=== PATIENT | female | born 1945 | race Caucasian/White ===

== ENCOUNTER → 2024-01-01 08:32 | Outpatient (REF) | payer OTHER, SELFPAY | LOC: HWRCS 08:32 | PROVIDERS: ATTENDING PHYSICIAN Family Medicine | DX: R55 Syncope and collapse (principal) | CPT/HCPCS: 93306 ==

== ENCOUNTER → 2024-02-09 14:44 | Outpatient (REF) | payer OTHER, SELFPAY | LOC: HWWDC 14:44 | PROVIDERS: ATTENDING PHYSICIAN Family Medicine | DX: Z12.31 Encounter for screening mammogram for malignant neoplasm of breast (principal) | CPT/HCPCS: 77063; 77067 ==

== ENCOUNTER → 2024-05-12 13:43 | Outpatient (REF) | payer OTHER, SELFPAY ==
[2024-05-12 16:24] LABS: % Basophils 0.6 % (0-2); % Eosinophils 1.8 % (0-6); % Immature Granulocytes 0.6 % (0-0.5); % Lymphocytes 19.1 % (20.5-51.1); % Monocytes 6.7 % (1.7-9.3); % Neutrophils 71.2 % (42.2-75.2); Absolute Basophils 0.1 10^3/uL (0-0.2); Absolute Eosinophils 0.2 10^3/uL (0-0.7); Absolute Immature Granulocytes 0.1 10^3/uL (0-0.05); Absolute Monocytes 0.7 10^3/uL (0.1-0.6); Absolute Neutrophils 7.6 10^3/uL (1.4-6.5); Hemoglobin 11.8 g/dL (12.0-16.0); Mean Corp Hgb Conc. 32.8 g/dL (33.0-37.0); Mean Corpuscular Hgb 27.9 pg (27.0-31.0); Mean Corpuscular Volume 85.1 fL (81.0-99.0); Mean Platelet Volume 11.9 fL (7.4-10.4); Nucleated Red Blood Cells % 0 %; Platelet Count 245 10^3/uL (130-400); Red Blood Cell Count 4.23 10^6/uL (4.20-5.40); Red Cell Dist. Width 14.2 % (11.5-14.5); White Blood Cell Count 10.6 10^3/uL (4.8-10.8)
[2024-05-12 16:36] LABS: IgA 195 mg/dl (70-400); IgG 879 mg/dl (700-1600); IgM 67 mg/dl (40-230)
[2024-05-14 19:47] LABS: IgG Subclass 1 459 mg/dL (240-1118); IgG Subclass 2 295 mg/dL (124-549); IgG Subclass 3 47 mg/dL (21-134); IgG Subclass 4 45 mg/dL (1-123)
== END ==
LOC: HWLAB 13:43
PROVIDERS: ATTENDING PHYSICIAN Internal Medicine Critical Care Medicine; FAMILY PHYSICIAN Family Medicine
DX: J45.30 Mild persistent asthma, uncomplicated (principal); J42 Unspecified chronic bronchitis; Z87.01 Personal history of pneumonia (recurrent)
CPT/HCPCS: 36415; 71046; 82784; 82787; 85025

== ENCOUNTER → 2024-07-26 08:56 | Outpatient (REF) | payer OTHER, SELFPAY | LOC: RAD 08:56 | PROVIDERS: ATTENDING PHYSICIAN Internal Medicine Gastroenterology; FAMILY PHYSICIAN Family Medicine | DX: R13.19 Other dysphagia (principal) | CPT/HCPCS: 74246 ==

== ENCOUNTER 2024-08-08 01:54 | Emergency (ER) | payer OTHER, SELFPAY ==
[2024-08-08] VITALS (15 sets, daily range): BP systolic 60–119; BP diastolic 48–67; BMI 25.0
--- NOTE | 2024-08-08 02:00 | ED.GENMED ---
History of Present Illness
<LISA Bojorquez - Last Filed: 08/08/24 06:05>
General
Chief Complaint: Chest Pain
Source: patient and significant other
Exam Limitations: none
Time Seen by Provider: 08/08/24 02:00
Nursing documentation reviewed up to this point in time: agreed with
History of Present Illness
History of Present Illness:
Pt is a 78 y/o F w/ PMH of migraines, HTN, HLD, type 2 DM and chronic cough who presents to the ED with chest pain x 2 hours after an episode of forceful coughing. When pt first arrived her BP was around 50/20, most likely due to the 2 doses of
nitroglycerin she was given before arrival. Since then, she has returned to wn. She states the pain feels like a heaviness on her chest and was initially an 8/10 but is now a 4/10 and is constant. She states the pain radiates up into her neck and
into her back. She states nothing like this has ever happened before. She denies fever, chills, GILBERT, nausea, vomiting, palpitations, abdominal pain, and loss of feeling/sensation in extremities x 4.
Past History
<LISA Bojorquez - Last Filed: 08/08/24 06:05>
Past History
ED Past Medical History: Asthma, NIDDM and Other (Arthritis, osteopenia, migraines)
ED Past Surgical History: Cholecystectomy, Gynecological (Tubal ligation) and Other (Colonoscopy)
Social History
Tobacco: Non-smoker
Alcohol: Other
Drug: None
Personal:
Living: with family
Employment: Retired
Family History
Family History: Other
Review of Systems
<LISA Bojorquez - Last Filed: 08/08/24 06:05>
Review of Systems
Allergies reviewed?: Yes
Constitutional: Reports no symptoms
EENT: Reports no symptoms
Respiratory: Reports cough
Cardiac: Reports chest pain
ABD/GI: Reports no symptoms
: Reports no symptoms
Musculoskeletal: Reports neck pain (radiating from chest) and back pain (radiating from chest)
Neurological: Reports no symptoms
Phy Exam
<Elizabeth Harrington LUIS ANTONIO - Last Filed: 08/08/24 06:05>
General Physical Exam
General Presentation: mild distress
General age: appears stated age
General Skin: warm and dry
General Habitus: normal and elderly
General Mental: alert
Cardiovascular Exam
Cardiovascular Exam: no gallop, no murmur and tachycardia
Pulmonary Exam
Pulmonary Exam: lungs clear and no respiratory distress
Course
<Elizabeth Harrington [facility] - Last Filed: 08/08/24 06:05>
Orders/Labs/Results
Orders:
Orders
08/08/24 01:59
Electrocardiogram (*1) Urgent
Reason for Study: Other
Other Reason for Exam: Respiratory Distress
Cardiac Monitoring- Treatment ONCE
EKG- Treatment ONCE
IV Insert/Care/Rem.- Treatment PRN
08/08/24 02:14
Complete Blood Count/With Diff Urgent
Comprehensive Metabolic Panel Urgent
NT-proBNP Urgent
Troponin I Urgent
08/08/24 02:16
Portable Chest Xray [CR Chest Portable - 1 View] Urgent
Comment:
Reason For Exam: chest pain
Reason Study Needs to be Portable: Unable to Transport
08/08/24 04:52
Ipratropium/Albuterol Sulfate [Duoneb] 3 ml INH R NOW ONE
08/08/24 05:01
Acetaminophen 1000MG/100Ml [Ofirmev] 1,000 mg in 100 ml IV ONCE
Acetaminophen IV Indication:: No [place] & No Enteral Access
08/08/24 05:24
COVID-19 Antigen Urgent
Source: Nasal Swab
Troponin I Urgent
Influenza A+B Rapid Molecular Urgent
JACINTO Source: Nasal Swab
Specimen Description:
Abnormal Lab Results
08/08/24
02:14
WBC 15.5 H 10^3/uL
(4.8-10.8)
RBC 3.98 L 10^6/uL
(4.20-5.40)
Hgb 11.0 L g/dL
(12.0-16.0)
Hct 34.3 L %
(37.0-47.0)
MCHC 32.1 L g/dL
(33.0-37.0)
Abs Immat Gran (auto) 0.1 H 10^3/uL
(0-0.05)
Absolute Neuts (auto) 12.5 H 10^3/uL
(1.4-6.5)
Absolute Monos (auto) 0.9 H 10^3/uL
(0.1-0.6)
Immature Gran % 0.6 H %
(0-0.5)
Neutrophils % 80.8 H %
(42.2-75.2)
Lymphocytes % 11.9 L %
(20.5-51.1)
BUN 18 H mg/dl
(7-17)
Glucose 156 H mg/dl
(70-99)
Alkaline Phosphatase 37 L U/L
(38-126)
Total Protein 6.2 L g/dl
(6.3-8.2)
08/08/24 02:14
08/08/24 02:14
Vital Signs
Initial and Last Documented VS:
Initial Vital Signs
Pulse Resp Pulse Ox
94 22 81
08/08/24 01:59 08/08/24 01:59 08/08/24 01:59
Last Documented Vital Signs
Temp Pulse Resp BP Pulse Ox
97.8 F 91 8 108/67 97
08/08/24 05:40 08/08/24 06:00 08/08/24 06:00 08/08/24 06:30 08/08/24 06:00
<Deepak Flynn, - Last Filed: 08/08/24 07:35>
Orders/Labs/Results
Orders:
Orders
08/08/24 01:59
Electrocardiogram (*1) Urgent
Reason for Study: Other
Other Reason for Exam: Respiratory Distress
Cardiac Monitoring- Treatment ONCE
EKG- Treatment ONCE
IV Insert/Care/Rem.- Treatment PRN
08/08/24 02:14
Complete Blood Count/With Diff Urgent
Comprehensive Metabolic Panel Urgent
NT-proBNP Urgent
Troponin I Urgent
08/08/24 02:16
Portable Chest Xray [CR Chest Portable - 1 View] Urgent
Comment:
Reason For Exam: chest pain
Reason Study Needs to be Portable: Unable to Transport
08/08/24 04:52
Ipratropium/Albuterol Sulfate [Duoneb] 3 ml INH R NOW ONE
08/08/24 05:01
Acetaminophen 1000MG/100Ml [Ofirmev] 1,000 mg in 100 ml IV ONCE
Acetaminophen IV Indication:: No [place] & No Enteral Access
08/08/24 05:24
COVID-19 Antigen Urgent
Source: Nasal Swab
Troponin I Urgent
Influenza A+B Rapid Molecular Urgent
JACINTO Source: Nasal Swab
Specimen Description:
Abnormal Lab Results
08/08/24
02:14
WBC 15.5 H 10^3/uL
(4.8-10.8)
RBC 3.98 L 10^6/uL
(4.20-5.40)
Hgb 11.0 L g/dL
(12.0-16.0)
Hct 34.3 L %
(37.0-47.0)
MCHC 32.1 L g/dL
(33.0-37.0)
Abs Immat Gran (auto) 0.1 H 10^3/uL
(0-0.05)
Absolute Neuts (auto) 12.5 H 10^3/uL
(1.4-6.5)
Absolute Monos (auto) 0.9 H 10^3/uL
(0.1-0.6)
Immature Gran % 0.6 H %
(0-0.5)
Neutrophils % 80.8 H %
(42.2-75.2)
Lymphocytes % 11.9 L %
(20.5-51.1)
BUN 18 H mg/dl
(7-17)
Glucose 156 H mg/dl
(70-99)
Alkaline Phosphatase 37 L U/L
(38-126)
Total Protein 6.2 L g/dl
(6.3-8.2)
08/08/24 02:14
08/08/24 02:14
Vital Signs
Initial and Last Documented VS:
Initial Vital Signs
Pulse Resp Pulse Ox
94 22 81
08/08/24 01:59 08/08/24 01:59 08/08/24 01:59
Last Documented Vital Signs
Temp Pulse Resp BP Pulse Ox
97.8 F 91 8 108/67 97
08/08/24 05:40 08/08/24 06:00 08/08/24 06:00 08/08/24 06:30 08/08/24 06:00
Georgialt;LISA Bojorquez - Last Filed: 08/08/24 06:05>
MDM/Problems Addressed
Differential Diagnosis Includes:
STEMI, NSTEMI, costochondritis, pericardial effusion
Chronic conditions affecting care: DM and HTN
<LISA Bojorquez - Last Filed: 08/08/24 06:05>
*EKG
Interpreted by ED Provider?: Yes
EKG Intrepretation Date: 08/08/24
EKG Intrepretation Time: 02:00
Interpretation: abnormal
Comparison EKG: no changes
Heart Rate: 101
Rate: tachycardiac
Rhythm: sinus
[place]: normal axis
Interval: normal interval
QRS Pattern: right bundle branch block
Ischemia: no ischemia
*Critical Care Note
Total Time (30-74mins, 75-104mins- exclusive of procedures): Not Applicable
<Deepak Flynn DO - Last Filed: 08/08/24 07:35>
*Radiology
Radiology exam reviewed: all reviewed NAD by ED Provider
*Pulse Oximetry
Patient hypoxic: no
<Deepak Flynn DO - Last Filed: 08/08/24 07:35>
Patient Management
Social determinants of health affecting care: Living situation and Strong social support
<LISA Bojorquez - Last Filed: 08/08/24 06:05>
Update Note
Update Note:
08/08/24 @ 0600am: Pt is currently doing nebulizer treatment and reports she is feeling okay.
<Deepak Flynn DO - Last Filed: 08/08/24 07:35>
Update Note
Update Note:
08/08/24 @ 0600am: Pt is currently doing nebulizer treatment and reports she is feeling okay.
08/08/2024 0732 AM: Patient ambulating around the department with no distress. She states that she has distinct left rib pain with deep breaths or movement of her torso. On x-ray there is no obvious rib fracture. Will provide incentive
spirometry. Patient to be discharged home.
ED Attending Note
<LISA Bojorquez - Last Filed: 08/08/24 06:05>
-
Portions of this chart may have been created with voice recognition software.� Occasional wrong word or��sound alike� substitutions may have occurred due to the inherent limitations of voice recognition software.
<Deepak Flynn DO - Last Filed: 08/08/24 07:35>
ED Attending Note
Patient seen and examined by attending physician: Yes
I performed the substantive portion of visit, reviewed & personally made and approve the management plan that is documented in note by myself or HALLE.: Yes
ED Attending Note:
This a pleasant 78-year-old female who presents to the emergency department with substernal chest pain. Patient does have a chronic cough. Tonight she coughed and developed back and chest pain. She states that the pain radiated to her jaw and
neck. She was given 2 nitroglycerin tablets. She states that after the nitroglycerin, she felt lightheaded. Her pressure went to 52/20 according to EMS. IV fluids were administered. Upon arrival, she expressed difficulty taking a deep breath.
Patient was seen in conjunction with the PA student. I have reviewed and agree with the history and treatment plan presented. On my independent physical exam, patient is awake, alert, and oriented x3, no acute distress after initial H&P was taken.
After fluids patient had no complaints. Heart is regular rate rhythm. Lungs are clear to auscultation bilaterally without wheezes rales or rhonchi. Skin is warm and dry. Denies chest pain or shortness of breath. Denies headache. Denies nausea
or vomiting. Reports no abdominal pain.
Discharge Plan
Departure
Patient Disposition: Home (Routine Discharge)
Date of Disposition: 08/08/24
Time of Disposition: 07:34
Patient with high blood pressure during this ER visit?: No
Condition: Good
Discharge Problem:
Acute chest wall pain, Rib injury
Instructions: How to Use an Incentive Spirometer, Bruised Rib (DC), Chest Pain PCP Follow Up
Prescriptions:
No Action
metformin [Glucophage] 500 mg Tablet
2,000 mg PO BID
fluticasone propion-salmeterol [Advair Diskus] 250-50 mcg/dose Blister With Device
1 inh INHALATION BID
simvastatin [Zocor] 10 mg Tablet
10 mg PO DAILY
glipizide [Glucotrol XL] 5 mg Tablet Extended Release 24hr
5 mg PO BID
sumatriptan succinate [Imitrex] 50 mg Tablet
50 mg PO ONCE PRN (Reason: migraine)
acetaminophen [Tylenol Ex Str Rapid Release] 500 mg Tablet
500 mg PO DAILY PRN (Reason: pain)
ibuprofen [Advil] 200 mg Tablet
200 mg PO DAILY PRN (Reason: pain)
montelukast 10 mg Tablet
10 mg PO DAILY
fexofenadine-pseudoephedrine [Do-D 12 Hour] 60-120 mg Tablet Extended Release 12 Hr
1 tab PO Q12H PRN (Reason: allergy)
lisinopril 2.5 mg Tablet
2.5 mg PO DAILY
Centrum Silver Tablet
1 tab PO DAILY
Januvia 50 mg Tablet
50 mg PO DAILY
Jardiance 10 mg Tablet
10 mg PO DAILY
albuterol-budesonide 90-80 mcg/actuation Hfa Aerosol Inhaler
2 inh INHALATION Q6H PRN (Reason: sob)
Rx Instructions:
as a single dose; may repeat up to 6 doses per day (12 inhalations)
Referrals:
Sancho Ortiz DO [Family Provider] -
Activity Restrictions/Additional Instructions:
It was a pleasure meeting you and taking part in your care. We hope for your continued healing and wellness.
Please read discharge instructions in their entirety. However, they are for general education and may not describe your exact diagnosis at discharge. Information on your ER visit and medical conditions were discussed with you along with appropriate
follow up information...
If indicated, please take your medications as instructed and indicated on discharge paperwork.
Please schedule a follow up appointment as directed. Call to schedule an appointment
Please return to the emergency department with ANY change in, persisting, or worsening of symptoms. If any of your symptoms do not improve, or persist, or become more severe within 6-12 hours, please return to the emergency department for further
care.
Please return to the emergency department if you develop a headache, neck pain/stiffness, fever greater than 100.4F, chest pain, shortness of breath, persistent nausea, vomiting, slurred speech, difficulty walking, numbness/tingling, weakness, signs
of infection or any other symptoms that are worrisome to you.
If you have any questions or concerns please do not hesitate to call the Hospital at or E-mail me directly at [email or web address]
Interventions
Interventions:
*Risk Screen - Suicide Last Done: 08/08/24 02:00
*General Assessment Last Done: 08/08/24 02:00
*Neglect/Abuse Screening Last Done: 08/08/24 02:00
ED- Fall Risk Assessment Last Done: 08/08/24 02:00
*ED COVID-19 Vaccine History Last Done: 08/08/24 02:00
ED- Cardiac Assessment Last Done: 08/08/24 02:00
Discharge Date and Time
Print Language: GABONESE
[2024-08-08 02:24] LABS: % Basophils 0.4 % (0-2); % Eosinophils 0.7 % (0-6); % Immature Granulocytes 0.6 % (0-0.5); % Lymphocytes 11.9 % (20.5-51.1); % Monocytes 5.6 % (1.7-9.3); % Neutrophils 80.8 % (42.2-75.2); Absolute Basophils 0.1 10^3/uL (0-0.2); Absolute Eosinophils 0.1 10^3/uL (0-0.7); Absolute Immature Granulocytes 0.1 10^3/uL (0-0.05); Absolute Lymphocytes 1.8 10^3/uL (1.2-3.4); Absolute Monocytes 0.9 10^3/uL (0.1-0.6); Absolute Neutrophils 12.5 10^3/uL (1.4-6.5); Hematocrit 34.3 % (37.0-47.0); Mean Corp Hgb Conc. 32.1 g/dL (33.0-37.0); Mean Corpuscular Hgb 27.6 pg (27.0-31.0); Mean Corpuscular Volume 86.2 fL (81.0-99.0); Mean Platelet Volume 9.7 fL (7.4-10.4); Nucleated Red Blood Cells % 0 %; Platelet Count 189 10^3/uL (130-400); Red Blood Cell Count 3.98 10^6/uL (4.20-5.40); Red Cell Dist. Width 13.9 % (11.5-14.5); White Blood Cell Count 15.5 10^3/uL (4.8-10.8)
[2024-08-08 02:35] LABS: ALT (SGPT) 21 U/L (0-35); AST (SGOT) 22 U/L (14-36); Albumin 3.8 g/dl (3.5-5.0); Alkaline Phosphatase 37 U/L (38-126); Blood Urea Nitrogen 18 mg/dl (7-17); Calcium 8.8 mg/dl (8.4-10.2); Carbon Dioxide 24 mmol/L (22-30); Chloride 102 mmol/L (98-107); Estimated Creatinine Clearance 43 ml/min; Glucose 156 mg/dl (70-99); Potassium 3.9 mmol/L (3.5-5.1); Sodium 137 mmol/L (135-145); Total Bilirubin 0.3 mg/dl (0.2-1.3); Total Protein 6.2 g/dl (6.3-8.2); eGFR > 60.00
[2024-08-08 02:45] LABS: NT-proBNP 33.4 pg/ml; Troponin I < 0.012 ng/ml
[2024-08-08] MEDS: OFIRMEV 100 IV (05:47)
[2024-08-08] MEDS: DUONEB 3 ML INH (05:48)
[2024-08-08 06:15] LABS: COVID-19 Antigen Negative (Negative)
[2024-08-08 06:19] LABS: Troponin I < 0.012 ng/ml
--- NOTE | 2024-08-08 07:35 | EDRN ---
per the providers request, this RN ambulated with the pt and the pt had no c/o SOB, no c/o chest pain, no c/o light headedness, the pt just has c/o pain when she takes a deep breath, the pts Sp02 remained 94% during the entire ambulation,
Rina currently at the pts bedside
== END 2024-08-08 08:02 | disposition home or self-care (01) ==
LOC: EMR 01:54
PROVIDERS: Nurse Practitioner Family; EMERGENCY PHYSICIAN Student in an Organized Health Care Education/Training Program; FAMILY PHYSICIAN Family Medicine
DX: S29.9XXA Unspecified injury of thorax, initial encounter (principal); X58.XXXA Exposure to other specified factors, initial encounter; E11.9 Type 2 diabetes mellitus without complications; E78.5 Hyperlipidemia, unspecified; I10 Essential (primary) hypertension; Z90.49 Acquired absence of other specified parts of digestive tract
CPT/HCPCS: 94640; 96374; 99285; 71045; 80053; 83880; 84484; 85025; 87502; 87811; 93005

== ENCOUNTER 2024-09-12 19:10 | Inpatient (IN) | payer OTHER, SELFPAY ==
[2024-09-12 14:17] VITALS: BP 118/66
[2024-09-12 14:50] LABS: % Basophils 0.3 % (0-2); % Eosinophils 0.1 % (0-6); % Immature Granulocytes 0.9 % (0-0.5); % Lymphocytes 8.8 % (20.5-51.1); % Monocytes 7.5 % (1.7-9.3); % Neutrophils 82.4 % (42.2-75.2); Absolute Immature Granulocytes 0.1 10^3/uL (0-0.05); Absolute Lymphocytes 0.7 10^3/uL (1.2-3.4); Absolute Monocytes 0.6 10^3/uL (0.1-0.6); Absolute Neutrophils 6.4 10^3/uL (1.4-6.5); Hematocrit 32.5 % (37.0-47.0); Hemoglobin 10.7 g/dL (12.0-16.0); Mean Corp Hgb Conc. 32.9 g/dL (33.0-37.0); Mean Corpuscular Hgb 27.2 pg (27.0-31.0); Mean Corpuscular Volume 82.5 fL (81.0-99.0); Mean Platelet Volume 9.8 fL (7.4-10.4); Nucleated Red Blood Cells % 0 %; Platelet Count 172 10^3/uL (130-400); Red Blood Cell Count 3.94 10^6/uL (4.20-5.40); Red Cell Dist. Width 14.3 % (11.5-14.5); White Blood Cell Count 7.7 10^3/uL (4.8-10.8)
[2024-09-12 14:57] LABS: ALT (SGPT) 31 U/L (0-35); AST (SGOT) 35 U/L (14-36); Alkaline Phosphatase 69 U/L (38-126); Blood Urea Nitrogen 11 mg/dl (7-17); Calcium 8.8 mg/dl (8.4-10.2); Carbon Dioxide 20 mmol/L (22-30); Chloride 93 mmol/L (98-107); Glucose 132 mg/dl (70-99); Potassium 4.5 mmol/L (3.5-5.1); Sodium 130 mmol/L (135-145); Total Bilirubin 0.5 mg/dl (0.2-1.3); Total Protein 6.7 g/dl (6.3-8.2); eGFR > 60.00
[2024-09-12 15:32] LABS: Troponin I < 0.012 ng/ml
[2024-09-12 16:03] VITALS: BP 125/64
[2024-09-12 18:16] VITALS: BP 115/61
--- NOTE | 2024-09-12 18:25 | ED.GENMED ---
History of Present Illness
General
Chief Complaint: Breathing Problem
Time Seen by Provider: 09/12/24 17:55
History of Present Illness
History of Present Illness:
78-year-old female presents to the emergency department for evaluation of intractable cough for the past 10 days. Has had persistent fevers during this time as well. Cough is productive of yellow-green mucus. Unable to take a full breath due to
frequent coughing. Denies any chest pain or leg swelling. No antipyretics taken today.
Past History
Past History
ED Past Medical History: Asthma, NIDDM and Other (Arthritis, osteopenia, migraines)
ED Past Surgical History: Cholecystectomy, Gynecological (Tubal ligation) and Other (Colonoscopy)
Social History
Tobacco: Non-smoker
Alcohol: Other
Drug: None
Personal:
Living: with family
Employment: Retired
Family History
Family History: Other
Review of Systems
Review of Systems
Allergies reviewed?: Yes
All Other Systems: ROS reviewed and negative except as documented in HPI and ROS
Phy Exam
Physical Exam
Physical Exam:
GEN: Well appearing, NAD, WDWN
HEENT: Oral mucosa moist, no scleral icterus
Cardiac: Mildly tachycardic
Lung: No respiratory distress, no tachypnea, crackles and rhonchi heard at the left base as well as the right middle field
MSK: No gross deformity or injuries
Skin: Good color, no pallor or jaundice, no rashes
Neuro: AO x3, moves all extremities freely
Psych: Calm, cooperative
Scores
Heart Failure Risk
Heart Failure Risk Score: Not Applicable
Course
Orders/Labs/Results
Orders:
Orders
09/12/24 14:22
Electrocardiogram (*1) Urgent
Reason for Study: Shortness of Breath
09/12/24 14:23
EKG- Treatment ONCE
CR Chest - 2 Views Urgent
Comment:
Reason For Exam: cough
09/12/24 14:26
Complete Blood Count/With Diff Urgent
Comprehensive Metabolic Panel Urgent
Troponin I Urgent
09/12/24 18:25
LevoFLOXacin 500 MG/100 ML [Levaquin] 500 mg in 100 ml IV NOW
09/12/24 18:43
COVID-19 Antigen Stat
Source: Nasal Swab
Influenza A+B Rapid Molecular Stat
JACINTO Source: Nasal Swab
Specimen Description:
09/12/24 18:50
Admit/Transfer Patient As Directed
Co-Sign Provider:
Level of Care: Inpatient admission
Assign to:: Telemetry
Physician / Group: kar
Diagnosis: acute hypoxic respiratory failure
Reason for Telemetry: Other
Other Reason for Telemetry: tachcyardia
Date to Stop Telemetry: 09/14/24
Time to Stop Telemetry: 11:00
Reason for Hospitalization: acute hypoxic respiratory failure
Expected length of stay greater than two midnights?: Yes
ELOS- Estimated Length of Stay in days: 3
I certify the patient meets the requirements for IP care: Yes
PRN Pain Medication Management As Directed
May give lesser potent ordered pain med per pt: Yes
preference::
Protocol:: Medication orders for pain may be administered in a
manner that supports deferring to patient preference
when the pt is:
- Requesting an ordered lesser potent pain medication.
Least to most potent pain medications are defined
as: acetaminophen < NSAID < tramadol < opioids
(morphine, oxycodone, hydromorphone).
- Requesting a lesser dose of the same medication IF
ORDERED.
- Requesting a less intrusive route of administration
if both routes are prescribed by the provider (PO <
IV).
09/12/24 18:51
Code Status As Directed
Resuscitation Status: Full Code
09/12/24 20:22
0.9% Sodium Chloride 1000 ml [Nss] 1,000 ml IV 80 mls/hr
Acetaminophen [Tylenol] 650 mg PO Q4HPRN PRN
Dextrose 50%-Water [Dextrose 50% Syringe] 12.5 grams IV [id number] PRN
Glucagon [GlucaGen] 1 mg IM PRN PRN
Guaifenesin [Mucinex] 600 mg PO Q12
Ipratropium/Albuterol Sulfate [Duoneb] 3 ml INH R Q4HPRN PRN
09/12/24 20:22
Legionella Urinary Antigen Routine
JACINTO Source: Urine
Specimen Description:
Strep pneumoniae Antigen Routine
JACINTO Source: Urine
Specimen Description:
Activity As Directed
Activity Level: Out of Bed-Early Mobility
Bedside Glucose Monitoring As Directed
Frequency: AC&HS
Additional Instructions:: Change to q6h if pt on TPN, tube feeding or not eating
Intake/ Output As Directed
Frequency: Per unit guidelines
Vital Signs As Directed
Frequency: Per unit guidelines
Weight As Directed
Frequency: Once
Comment: on admission
O2 Therapy [RESP] Routine
Titrate/Wean O2 to maintain O2 sat greater than (%): 95
Special Instructions: Wean as tolerated
DX Deep Vein Thrombosis Video Routine
09/12/24 20:57
Respiratory Culture/Gram Stain Urgent
JACINTO Source: Sputum
Specimen Description:
Date Specimen was Collected: 09/12/24
Time Specimen was Collected: 20:50
09/12/24 22:00
Montelukast Sodium [Singulair] 10 mg PO HS
09/13/24 Breakfast
1800 calorie (15 carb) Diabetic
At Your Request: Full Participation
Basic Metabolic Panel IN AM
Complete Blood Count/No Diff IN AM
Glycohemoglobin (HgbA1c) IN AM
09/13/24 07:30
Insulin Aspart Corrective Low [Novolog Flexpen-Low Resistance] See Protocol SC AC
09/13/24 08:00
Lisinopril [Zestril] 2.5 mg PO DAILY
09/13/24 18:00
Atorvastatin [Lipitor] 10 mg PO QPM
Enoxaparin Sodium [Lovenox] 40 mg SC QPM
09/13/24 20:00
LevoFLOXacin 750 MG/150 ML [Levaquin] 750 mg in 150 ml IV Q24H
09/14/24 06:00
Basic Metabolic Panel IN AM
09/14/24 11:00
DC Protocol for Telemetry ONCE
09/15/24 06:00
Basic Metabolic Panel IN AM
Abnormal Lab Results
09/12/24
14:26
RBC 3.94 L 10^6/uL
(4.20-5.40)
Hgb 10.7 L g/dL
(12.0-16.0)
Hct 32.5 L %
(37.0-47.0)
MCHC 32.9 L g/dL
(33.0-37.0)
Abs Immat Gran (auto) 0.1 H 10^3/uL
(0-0.05)
Absolute Lymphs (auto) 0.7 L 10^3/uL
(1.2-3.4)
Immature Gran % 0.9 H %
(0-0.5)
Neutrophils % 82.4 H %
(42.2-75.2)
Lymphocytes % 8.8 L %
(20.5-51.1)
Sodium 130 L mmol/L
(135-145)
Chloride 93 L mmol/L
(98-107)
Carbon Dioxide 20 L mmol/L
(22-30)
Creatinine 0.5 L mg/dL
(0.6-1.0)
Glucose 132 H mg/dl
(70-99)
09/12/24 14:26
09/12/24 14:26
Vital Signs
Initial and Last Documented VS:
Initial Vital Signs
Temp Pulse Resp BP Pulse Ox
98.4 F 100 18 118/66 94
09/12/24 14:17 09/12/24 14:17 09/12/24 14:17 09/12/24 14:17 09/12/24 14:17
Last Documented Vital Signs
Temp Pulse Resp BP Pulse Ox
100 F 113 18 125/67 96
09/12/24 20:40 09/12/24 20:40 09/12/24 20:40 09/12/24 20:40 09/12/24 20:40
MDM/Problems Addressed
MDM/Problems Addressed:
Patient is hypoxic at rest thus we will admit for IV antibiotics, due to beta-lactam allergies and cephalosporin allergies will give Levaquin, her prior intolerance was due to glucose control issues while on oral Levaquin, this would not be a direct
contraindication to use at this time
*Critical Care Note
Total Time (30-74mins, 75-104mins- exclusive of procedures): Not Applicable
ED Attending Note
-
Portions of this chart may have been created with voice recognition software.� Occasional wrong word or��sound alike� substitutions may have occurred due to the inherent limitations of voice recognition software.
Discharge Plan
Departure
Patient Disposition: Admit
Date of Disposition: 09/12/24
Time of Disposition: 18:27
Admit to: Med/Surg
Presentation/result/management discussed w/ accepting MD/DO: Hospitalist
Discharge Problem:
Bilateral pneumonia
Interventions
Interventions:
*Risk Screen - Suicide Last Done: 09/12/24 14:17
*General Assessment Last Done: 09/12/24 14:17
*Neglect/Abuse Screening Last Done: 09/12/24 14:17
ED- Fall Risk Assessment Last Done: 09/12/24 20:05
*ED COVID-19 Vaccine History Last Done: 09/12/24 18:00
*Nursing Disposition Last Done: 09/12/24 20:05
ED- Cardiac Assessment Last Done: 09/12/24 18:00
ED- Pulmonary Assessment Last Done: 09/12/24 18:00
Discharge Date and Time
Discharge Date/Time: 09/12/24 20:05
--- NOTE | 2024-09-12 18:26 | HPS.HSE ---
Family Physician
-
Family Physician: Sancho Ortiz
Chief Complaint
-
Cough
Short of breath
History of Present Illness
78-year-old female with past medical history for Zenker's diverticulum, type 2 diabetes, asthma, hyperlipidemia presented to us with worsening of her chronic cough since Thursday . Patient is short of breath .she is complaining of chest pain from
cough . Patient stated productive with greenish thick sputum. She had a intermittent fever of 101.6 . She is complaining of headache denies dizzy or syncope .patient denies any abdominal pain, nausea, vomiting, diarrhea patient denies dysuria,
hematuria. Patient was started on Tamiflu since yesterday.
Upon arrival patient was not hypoxic. Patient requiring 2 L of oxygen. Patient initiated on Levaquin. Admitting for further management
Medical History
Past Medical History
Past Medical History: Reports Other
Additional Past Medical History:
Type 2 diabetes
Aspirin
Hyperlipidemia
Hypertension
Pneumonia
Pleurisy
CAD
Migraine
Past Surgical History: Reports Other
Additional Past Surgical History:
Cholecystectomy
Bilateral cataract surgery
Tonsillectomy
Tubal ligation
Social History
Tobacco: Non-smoker
Alcohol: None
Drug: None
Personal:
Living: With Family
Family History
Family History: Not pertinent
Allergies / Home Medications
Allergies reflects when Allergies were last updated in [facility].
Home Medications with original date entered in [facility]
Allergy/Medication List:
Allergies
Allergy/AdvReac Type Severity Reaction Status Date / Time
benzonatate Allergy Tongue Verified 09/12/24 14:16
[From Tessalon Perles] Swelling
cefaclor [From Ceclor] Allergy Anaphylaxis Verified 09/12/24 14:16
levofloxacin [From Levaquin] Allergy Unknown Verified 09/12/24 14:16
Penicillins Allergy Unknown Verified 09/12/24 14:16
walnut Allergy Tongue Verified 09/12/24 14:16
Swelling
Home Medications
acetaminophen 500 mg tablet 500 mg PO DAILY PRN pain 08/08/24
albuterol 90 mcg-budesonide 80 mcg/actuation HFA aerosol inhaler 2 inh inhalation Q6H PRN sob 08/08/24
empagliflozin 10 mg tablet (Jardiance) 10 mg PO DAILY 08/08/24
fexofenadine 60 mg-pseudoephedrine ER 120 mg tablet,ext.release,12 hr (Do-D 12 Hour) 1 tab PO Q12H PRN allergy 08/08/24
fluticasone 250 mcg-salmeterol 50 mcg/dose blistr powdr for inhalation (Advair Diskus) 1 inh inhalation BID 08/08/24
glipizide 5 mg tablet, extended release 24 hr (Glucotrol XL) 5 mg PO BID 08/08/24
ibuprofen 200 mg tablet (Advil) 200 mg PO DAILY PRN pain 08/08/24
lisinopril 2.5 mg tablet 2.5 mg PO DAILY 08/08/24
metformin 500 mg tablet 2,000 mg PO BID 08/08/24
montelukast 10 mg tablet 10 mg PO DAILY 08/08/24
jdqyuaimjuuo-sbcgrnsb-gfbqfi tablet 1 tab PO DAILY 08/08/24
simvastatin 10 mg tablet (Zocor) 10 mg PO DAILY 08/08/24
sitagliptin phosphate 50 mg tablet (Januvia) 50 mg PO DAILY 08/08/24
sumatriptan succinate 50 mg tablet (Imitrex) 50 mg PO ONCE PRN migraine 08/08/24
Review of Systems
-
Constitutional: Reports Fever, Fatigue and Chills
EENT: Reports No Symptoms
Respiratory: Reports Cough and Trouble Breathing
Cardiac: Reports No Symptoms
Abdomen/GI: Reports No Symptoms and Vomiting
: Reports No Symptoms and Other (Dark urine)
Musculoskeletal: Reports No Symptoms
Skin: Reports No Symptoms
Neurological: Reports Headache
Endocrine: Reports No Symptoms
Hematologic/Lymphatic: Reports No Symptoms
Psych: Reports No Symptoms
Physical Exam
Vital Signs
Vital Signs
Temp Pulse Resp BP Pulse Ox
98.4 F 107 20 125/64 93
09/12/24 14:17 09/12/24 16:03 09/12/24 16:03 09/12/24 16:03 09/12/24 16:03
Physical Exam
General: Well Developed, Well Nourished and No Apparent Distress
HEENT: NormoCephalic, Moist mucous membranes and Atraumatic
Respiratory: Wheezes and Rales
Cardiac: S1/S2 and Regular Rhythm; No Murmur or Rub
GI: Soft, Non Tender, Non Distended and Normal Bowel Sounds; No Organomegaly
Rectal: Deferred by Provider
Musculoskeletal: No Clubbing, No Cyanosis and No Edema
Skin: No Rash
Neuro: AO x 3 and Nonfocal/grossly intact
Psych: Calm
Laboratory Results
-
09/12/24 14:26
09/12/24 14:26
Laboratory Results
Total Bilirubin 0.5 mg/dl (0.2-1.3) 09/12/24 14:26
AST 35 U/L (14-36) 09/12/24 14:26
ALT 31 U/L (0-35) 09/12/24 14:26
Alkaline Phosphatase 69 U/L (38-126) 09/12/24 14:26
Troponin I < 0.012 ng/ml 09/12/24 14:26
Data Reviewed
-
Diagnostic Radiology: Report Reviewed by me
Lab Data: Labs Reviewed by me
Impression/Plan
-
#acute hypoxic respiratory failure likely from pneumonia
-iv Levaquin continued
-chest x ray with Questionable small patchy right mid and left lower lobe opacity which could represent pneumonitis.
-Obtain COVID and flu
-Tylenol as needed for fever and pain
Continue supplemental oxygen to keep sat greater than 95
-Wean as tolerated
-Obtain COVID and flu
-hold Tamiflu until resulted
#anemia of chronic disease
-hgb of 10.7
-no active bleeding
-ctm
#hyponatremia/metabolic acidosis likely dehydration
-na 130, co2 20
-Normal saline continued
-BMP in a.m.
# Type 2 diabetes
-Sliding scale
-Carb controlled diet
-Daily hold diabetic oral agents
# History of asthma
-Noted acute exacerbation
-Nebs as needed for shortness breath and wheezing
# Hyperlipidemia
-statin
#History of Zenker's diverticulum
-Scheduled for surgery on September 23
# DVT prophylaxis
-Lovenox
#CODE STATUS
-Full code
--- NOTE | 2024-09-12 18:59 | W.PN.UPDATE ---
Update Note
Progress Note Update
This is an addendum to the H&P written by Ofe Rivera on 09/12/2024. Patient seen and examined independently with METAL FABRICATION SUPERVISOR. 78-year-old female past medical history of asthma, diabetes, hypertension, chronic cough secondary to Zenker's diverticulum,
presenting with worsening productive cough and fevers and chills, body aches, shortness of breath chest pain associate with cough over the past few days.
She was empirically started on Tamiflu yesterday although she was not tested for flu.
Labs show hyponatremia sodium 130 otherwise unremarkable.
Chest x-ray shows questionable patchy right mid and left lower lobe opacity likely pneumonia.
Check sputum culture. Start Levaquin. IV fluids. Check COVID and influenza and stop Tamiflu for influenza negative.
[2024-09-12 19:07] LABS: COVID-19 Antigen Negative (Negative)
[2024-09-12 19:28] VITALS: BP 122/55
[2024-09-12] MEDS: LEVAQUIN 100 IV (19:29)
--- NOTE | 2024-09-12 20:15 | PTCARENOTE ---
Pt received from ED to 414-2. Pt oriented to room and call vaughn.
[2024-09-12] MEDS: NSS 1000 IV (20:35)
[2024-09-12 20:40] VITALS: BP 125/67; BMI 23.1
[2024-09-12] MEDS: MUCINEX PO ×2 (20:42)
[2024-09-12] MEDS: SINGULAIR PO ×2 (20:42)
[2024-09-12] MEDS: ZOFRAN 4 MG IV (21:35)
[2024-09-12 21:42] LABS: Glucose - Point of Care 152 mg/dl (70-99)
[2024-09-12 23:30] VITALS: BP 128/58
[2024-09-13 03:49] VITALS: BP 125/64
[2024-09-13] MEDS: ROBITUSSIN 100 MG PO ×2 (04:00→23:45)
[2024-09-13] MEDS: TYLENOL 650 MG PO (04:00)
[2024-09-13 06:00] VITALS: BMI 23.1
[2024-09-13 07:00] VITALS: BP 106/52
[2024-09-13 07:17] LABS: Glucose - Point of Care 74 mg/dl (70-99)
[2024-09-13] MEDS: NOVOLOG FLEXPEN-LOW RESISTANCE SC (07:18)
[2024-09-13] MEDS: MUCINEX 600 MG PO ×2 (09:02→20:00)
[2024-09-13] MEDS: ZESTRIL PO (09:02)
[2024-09-13] MEDS: NSS 1000 IV ×2 (09:03→23:19)
--- NOTE | 2024-09-13 09:09 | W.PN.HOSP.TC ---
Addendum entered and electronically signed by Anthony Robbins MD 09/13/24 17:21:
updated over the phone today
Original Note:
Today's Communication/Plan
-
Repeat BMP. IVF. IV antibiotics. PT OT eval
Assessment / Plan
Assessment / Plan
Physical exam:
General: Well Developed, Well Nourished and No Apparent Distress
HEENT: Normocephalic, Atraumatic and Moist Mucous Membranes
Respiratory: Clear to Auscultation; Negative Wheezes, Rales or Rhonchi
Cardiac: Regular Rhythm and S1/S2
GI: Soft, Nontender and Nondistended
Musculoskeletal: No Clubbing, No Cyanosis and No Edema
Neuro: Awake, Alert and Oriented
Psych: Calm
A/P:
#acute hypoxic respiratory failure likely from pneumonia
-iv Levaquin continued
-chest x ray with Questionable small patchy right mid and left lower lobe opacity which could represent pneumonitis.
-Obtain COVID and flu
-Tylenol as needed for fever and pain
Continue supplemental oxygen to keep sat greater than 95
-Wean as tolerated
-Obtain COVID and flu
-hold Tamiflu-results negative
-PT OT eval
#anemia of chronic disease
-hgb of 11.3
-no active bleeding
-ctm
#hyponatremia/metabolic acidosis likely dehydration
-na 131 better, but co2 worsening at 15 this morning--> will repeat a BMP this afternoon and will check b-hydroxybutyrate since he has been on SGLT2 inhibitor Januvia which is currently on hold.
-Normal saline continued
# Type 2 diabetes
-Sliding scale
-Carb controlled diet
-Daily hold diabetic oral agents
# History of asthma
-Noted acute exacerbation
-Nebs as needed for shortness breath and wheezing
# Hyperlipidemia
-statin
#History of Zenker's diverticulum
-Scheduled for surgery on September 23
# DVT prophylaxis
-Lovenox
#CODE STATUS
-Full code
Anticipated Discharge: 24 - 48 hours
Subjective/Interval History
-
Date of Service: September 13, 2024
Patient feels better today. Less shortness of breath and cough. Afebrile
Objective Data
-
Labs:
Laboratory Results
09/13/24
06:00
WBC Pending
Hgb Pending
Hct Pending
Plt Count Pending
Sodium Pending
Potassium Pending
Chloride Pending
Carbon Dioxide Pending
BUN Pending
Creatinine Pending
Glucose Pending
Calcium Pending
Vital Signs:
Vital Signs
Temp Pulse Resp BP Pulse Ox
99.1 F 94 20 106/52 93
09/13/24 07:00 09/13/24 07:00 09/13/24 07:00 09/13/24 09:02 09/13/24 07:00
I&O
09/12/24 09/13/24 09/14/24
06:59 06:59 06:59
Intake Total 1760 / 1760
Balance 1760 / 1760
[2024-09-13] MEDS: ZOFRAN 4 MG IV (09:26)
[2024-09-13] MEDS: DUONEB 3 ML INH (10:10)
[2024-09-13 10:16] LABS: Hematocrit 33.8 % (37.0-47.0); Hemoglobin 11.3 g/dL (12.0-16.0); Mean Corp Hgb Conc. 33.4 g/dL (33.0-37.0); Mean Corpuscular Hgb 27.6 pg (27.0-31.0); Mean Corpuscular Volume 82.4 fL (81.0-99.0); Mean Platelet Volume 9.9 fL (7.4-10.4); Platelet Count 187 10^3/uL (130-400); Red Cell Dist. Width 14.4 % (11.5-14.5); White Blood Cell Count 10.3 10^3/uL (4.8-10.8)
[2024-09-13 10:38] LABS: Blood Urea Nitrogen 13 mg/dl (7-17); Calcium 8.5 mg/dl (8.4-10.2); Carbon Dioxide 15 mmol/L (22-30); Chloride 99 mmol/L (98-107); Estimated Creatinine Clearance 60 ml/min; Glucose 102 mg/dl (70-99); Potassium 3.8 mmol/L (3.5-5.1); Sodium 131 mmol/L (135-145); eGFR > 60.00
[2024-09-13 11:00] VITALS: BP 114/57
[2024-09-13 11:57] LABS: Glucose - Point of Care 157 mg/dl (70-99)
[2024-09-13 11:57] LABS: Glycohemoglobin (HgbA1c) 7.2 % (4.0-5.6)
[2024-09-13] MEDS: NOVOLOG FLEXPEN-LOW RESISTANCE 1 UNITS SC (12:40)
[2024-09-13 15:00] VITALS: BP 120/61
--- NOTE | 2024-09-13 16:05 | CM ---
Pt seen bedside w/ spouse. Initial assessment completed.
Pt reports that she lives w/ spouse in a 2STH- 2 steps to enter.
Pt is independent w/ ambulating, denies any DME. Pt is currently on 2L O2, does not use O2 at home.
Pt denies SNF/VN/PT hx.
Address, point of contact and insurance verified
PCP: Dr. Ortiz
Pharmacy: [facility]
Currently on IV abx.
PT/OT to evaluate
Plan: CM will cont to follow hospital course for d/c planning
[2024-09-13 16:40] LABS: Glucose - Point of Care 203 mg/dl (70-99)
[2024-09-13 17:02] LABS: Blood Urea Nitrogen 13 mg/dl (7-17); Calcium 8.2 mg/dl (8.4-10.2); Carbon Dioxide 19 mmol/L (22-30); Chloride 98 mmol/L (98-107); Estimated Creatinine Clearance 60 ml/min; Glucose 192 mg/dl (70-99); Sodium 131 mmol/L (135-145); eGFR > 60.00
[2024-09-13 17:34] LABS: B-Hydroxybutyrate 2.11 mmol/L (0.02-0.27)
[2024-09-13] MEDS: NOVOLOG FLEXPEN-LOW RESISTANCE 2 UNITS SC (17:37)
[2024-09-13] MEDS: LIPITOR 10 MG PO (17:37)
[2024-09-13] MEDS: LOVENOX 40 MG SC (17:37)
[2024-09-13 18:05] LABS: Lactic Acid 0.8 mmol/L (0.7-2.0)
[2024-09-13 19:15] VITALS: BP 114/65
[2024-09-13] MEDS: LEVAQUIN 150 IV (19:59)
[2024-09-13] MEDS: SINGULAIR 10 MG PO (21:13)
[2024-09-13 22:00] LABS: Glucose - Point of Care 184 mg/dl (70-99)
[2024-09-13 23:10] VITALS: BP 107/49
[2024-09-14] VITALS (7 sets, daily range): BP systolic 98–137; BP diastolic 48–85; PULSE 91; O2SAT 91
[2024-09-14] MEDS: DUONEB 3 ML INH (04:27)
[2024-09-14] MEDS: ROBITUSSIN DM 10 ML PO ×2 (04:53→20:57)
[2024-09-14] MEDS: BENADRYL 25 MG IV (04:53)
[2024-09-14 06:01] LABS: % Basophils 0.4 % (0-2); % Eosinophils 0.1 % (0-6); % Immature Granulocytes 1.6 % (0-0.5); % Lymphocytes 10.5 % (20.5-51.1); % Monocytes 8.2 % (1.7-9.3); % Neutrophils 79.2 % (42.2-75.2); Absolute Immature Granulocytes 0.2 10^3/uL (0-0.05); Absolute Lymphocytes 1.1 10^3/uL (1.2-3.4); Absolute Monocytes 0.8 10^3/uL (0.1-0.6); Hematocrit 32.3 % (37.0-47.0); Hemoglobin 10.6 g/dL (12.0-16.0); Mean Corp Hgb Conc. 32.8 g/dL (33.0-37.0); Mean Corpuscular Hgb 27.3 pg (27.0-31.0); Mean Corpuscular Volume 83.2 fL (81.0-99.0); Mean Platelet Volume 9.4 fL (7.4-10.4); Nucleated Red Blood Cells % 0 %; Platelet Count 167 10^3/uL (130-400); Red Blood Cell Count 3.88 10^6/uL (4.20-5.40); Red Cell Dist. Width 14.6 % (11.5-14.5); White Blood Cell Count 10.1 10^3/uL (4.8-10.8)
[2024-09-14 06:30] LABS: Blood Urea Nitrogen 10 mg/dl (7-17); Calcium 8.2 mg/dl (8.4-10.2); Carbon Dioxide 16 mmol/L (22-30); Chloride 100 mmol/L (98-107); Estimated Creatinine Clearance 60 ml/min; Glucose 160 mg/dl (70-99); Potassium 3.2 mmol/L (3.5-5.1); Sodium 132 mmol/L (135-145); eGFR > 60.00
[2024-09-14 08:03] LABS: Glucose - Point of Care 178 mg/dl (70-99)
[2024-09-14] MEDS: MUCINEX 600 MG PO ×2 (08:42→19:45)
[2024-09-14] MEDS: ZESTRIL 2.5 MG PO (08:42)
[2024-09-14] MEDS: NOVOLOG FLEXPEN-LOW RESISTANCE 1 UNITS SC (08:43)
[2024-09-14] MEDS: TYLENOL 650 MG PO (08:52)
--- NOTE | 2024-09-14 10:03 | W.PN.HOSP.TC ---
Today's Communication/Plan
-
Continue antibiotic. Lantus and NovoLog. IV fluid
Assessment / Plan
Assessment / Plan
Physical exam:
General: Well Developed, Well Nourished and No Apparent Distress
HEENT: Normocephalic, Atraumatic and Moist Mucous Membranes
Respiratory: Clear to Auscultation; Negative Wheezes, Rales or Rhonchi
Cardiac: Regular Rhythm and S1/S2
GI: Soft, Nontender and Nondistended
Musculoskeletal: No Clubbing, No Cyanosis and No Edema
Neuro: Awake, Alert and Oriented
Psych: Calm
A/P:
#acute hypoxic respiratory failure likely from pneumonia
-iv Levaquin continued
-chest x ray with Questionable small patchy right mid and left lower lobe opacity which could represent pneumonitis. Patient does not tolerate any antibiotics orally perhaps only azithromycin. She has a scheduled surgery of her esophagus next week.
-Obtain COVID and flu
-Tylenol as needed for fever and pain
Continue supplemental oxygen to keep sat greater than 95
-Wean as tolerated
-Obtain COVID and flu
-hold Tamiflu-results negative
-PT OT eval
-Discussed with over the phone yesterday
#anemia of chronic disease
-hgb of 11.3
-no active bleeding
-ctm
#hyponatremia/metabolic acidosis likely dehydration
-Beta-hydroxybutyrate elevated and some acidosis--> will continue with IV fluids for now and will give IV bicarbonate x 1 and potassium replacement, but if worsening consider IV insulin drip and IV fluids. For now we will use Lantus 15 units daily
and NovoLog 5 units before meals.
-Sodium much better
# Type 2 diabetes
-Sliding scale
-Carb controlled diet
-Daily hold diabetic oral agents
# History of asthma
-Noted acute exacerbation
-Nebs as needed for shortness breath and wheezing
# Hyperlipidemia
-statin
#History of Zenker's diverticulum
-Scheduled for surgery on September 23
# DVT prophylaxis
-Lovenox
#CODE STATUS
-Full code
Time spent 52 minutes
Anticipated Discharge: 24 - 48 hours
Subjective/Interval History
-
Date of Service: September 14, 2024
Patient feels better overall. Less cough. On supplemental oxygen
Objective Data
-
Labs:
Laboratory Results
09/14/24
05:51
WBC 10.1
Hgb 10.6 L
Hct 32.3 L
Plt Count 167
Sodium 132 L
Potassium 3.2 L
Chloride 100
Carbon Dioxide 16 L
BUN 10
Creatinine 0.5 L
Glucose 160 H
Calcium 8.2 L
Vital Signs:
Vital Signs
Temp Pulse Resp BP Pulse Ox
99.6 F 101 20 123/63 93
09/14/24 07:34 09/14/24 07:34 09/14/24 07:34 09/14/24 07:34 09/14/24 07:34
I&O
09/13/24 09/14/24 09/15/24
06:59 06:59 06:59
Intake Total 1760 / 1760 2890 / 3390
Balance 1760 / 1760 3820 / 3390
[2024-09-14] MEDS: SODIUM BICARBONATE 50 MEQ IV (10:15)
[2024-09-14] MEDS: KCL ELIXIR 40 MEQ PO (10:15)
--- NOTE | 2024-09-14 10:50 | PTOTSP ---
Speech Therapy
Presentation: Patient was oriented, followed commands and her speech/ language was WNL during informal conversation with NATIONAL INSURANCE OFFICER and spouse.
Complaints: Per patient and spouse, patient has been eating 'softer solids and thin liquids' for approx ~1 year due to the reportedly large zenkers diverticulum (anticipated surgery at [place] on 09/22).
Swallowing Function: Patient has been experiencing coughing, discomfort, and vomiting in the presence and absence of PO. Patient was observed with several small, single sips (straw) of thin iquids and bites of puree solids in which patient appeared
to tolerate as she did not exhibit any overt clinical s/sx of aspiration or difficulty with mastication/ manipulation. Patient's swallow initiation appeared to be timley to the touch. Patient was observed with 2 large pills in applesauce in which
patient appeared to tolerate. Approximately ~5 minutes, patient began to experience coughing. Given patient's reported 'large zenkers diverticulum' and clinical presentation, recommend diet downgrade to IDDSI 5 and thin liquids with a VSE to further
quantify swallowing function.
Recommendations:
1) Diet downgrade to IDDSI 5 and thin liquids
2) Small, single bites and sips
3) Aspiration and reflux precautions
4) VSE
5) Medications as tolerated
Plan: NATIONAL INSURANCE OFFICER will continue to follow; pending hospitalization.
[2024-09-14] MEDS: NSS 1000 IV (11:43)
[2024-09-14 12:07] LABS: Glucose - Point of Care 220 mg/dl (70-99)
[2024-09-14] MEDS: NOVOLOG FLEXPEN-LOW RESISTANCE 2 UNITS SC ×2 (12:34→16:59)
[2024-09-14 16:22] LABS: Glucose - Point of Care 243 mg/dl (70-99)
[2024-09-14] MEDS: NOVOLOG FLEXPEN 5 UNITS SC (17:00)
[2024-09-14] MEDS: LANTUS 0.15 UNITS SC (17:00)
[2024-09-14] MEDS: LIPITOR 10 MG PO (18:25)
[2024-09-14] MEDS: LOVENOX 40 MG SC (18:25)
[2024-09-14] MEDS: LEVAQUIN 150 IV (19:58)
[2024-09-14] MEDS: MELATONIN 5 MG PO (20:54)
[2024-09-14] MEDS: SINGULAIR 10 MG PO (20:56)
[2024-09-14 21:08] LABS: Glucose - Point of Care 211 mg/dl (70-99)
[2024-09-15] MEDS: NSS 1000 IV (01:01)
[2024-09-15] MEDS: ZOFRAN 4 MG IV (04:22)
[2024-09-15 06:54] LABS: Blood Urea Nitrogen 8 mg/dl (7-17); Calcium 8.1 mg/dl (8.4-10.2); Carbon Dioxide 25 mmol/L (22-30); Chloride 102 mmol/L (98-107); Estimated Creatinine Clearance 60 ml/min; Glucose 163 mg/dl (70-99); Potassium 3.8 mmol/L (3.5-5.1); Sodium 136 mmol/L (135-145); eGFR > 60.00
[2024-09-15 07:26] VITALS: BP 120/60
[2024-09-15 07:48] LABS: Glucose - Point of Care 194 mg/dl (70-99)
--- NOTE | 2024-09-15 07:52 | W.PN.HOSP.TC ---
Addendum entered and electronically signed by Anthony Robbins MD 09/15/24 15:01:
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
Acute hypoxic respiratory failure ruled out. She does have acute hypoxic respiratory insufficiency.
Original Note:
Today's Communication/Plan
-
Antibiotics.
Assessment / Plan
Assessment / Plan
Physical exam:
General: Well Developed, Well Nourished and No Apparent Distress
HEENT: Normocephalic, Atraumatic and Moist Mucous Membranes
Respiratory: Clear to Auscultation; Negative Wheezes, Rales or Rhonchi
Cardiac: Regular Rhythm and S1/S2
GI: Soft, Nontender and Nondistended
Musculoskeletal: No Clubbing, No Cyanosis and No Edema
Neuro: Awake, Alert and Oriented
Psych: Calm
A/P:
Acute hypoxic respiratory failure due to aspiration pneumonia:
Supplemental oxygen
Wean oxygen
Strep and Legionella negative
Sputum culture usual livia
Influenza/COVID-19 negative (treated with Tamiflu prior to admission but discontinued after confirmed negative test)
PT OT eval
Discussed with prior
Aspiration pneumonia:
In the setting of Zenker's diverticulum
On IV Levaquin
Patient does not tolerate any antibiotics orally perhaps only azithromycin (not even oral Levaquin).
Speech therapy eval--> plan for VSE but after discussion with the patient and sister plans for surgery next week no need for VSE. Currently on minced and moist diet so changed to regular diet per speech therapy recommendations as well.
Patient has scheduled surgery next week for Zenker's diverticulum
Metabolic acidosis:
Resolving
Likely combination of infection, dehydration, and euglycemic DKA due to SGLT2 inhibitor
Resolved with fluids, bicarb, and long-acting and short insulin.
Bicarb today 25, up from as low as 15
Continue to monitor
Hyponatremia:
Improving
Sodium 136 today
Hypertension:
Continue lisinopril
Hyperlipidemia:
Continue atorvastatin 10 mg p.o. nightly
Diabetes mellitus type 2:
On insulin regimen now
Probably back to oral hypoglycemics upon discharge
Asthma:
Stable
Bronchodilators as needed
Continue montelukast
DVT prophylaxis:
Lovenox SQ
CODE STATUS:
Full code
Anticipated Discharge: Within 24 hours
Subjective/Interval History
-
Date of Service: September 15, 2024
Patient feels better overall. On room air. Afebrile
Objective Data
-
Labs:
Laboratory Results
09/15/24
06:21
Sodium 136
Potassium 3.8
Chloride 102
Carbon Dioxide 25
BUN 8
Creatinine 0.4 L
Glucose 163 H
Calcium 8.1 L
Vital Signs:
Vital Signs
Temp Pulse Resp BP Pulse Ox
98.6 F 84 18 120/60 95
09/15/24 07:26 09/15/24 07:26 09/15/24 07:26 09/15/24 07:26 09/15/24 07:26
I&O
09/14/24 09/15/24 09/16/24
06:59 06:59 06:59
Intake Total 3390 / 3390 1869
Balance 3390 / 3390 1869
[2024-09-15] MEDS: ZESTRIL 2.5 MG PO (08:39)
[2024-09-15] MEDS: LANTUS 0.15 UNITS SC (08:39)
[2024-09-15] MEDS: MUCINEX 600 MG PO ×2 (08:39→20:09)
[2024-09-15] MEDS: NOVOLOG FLEXPEN-LOW RESISTANCE 1 UNITS SC ×2 (08:41→16:49)
[2024-09-15] MEDS: NOVOLOG FLEXPEN 5 UNITS SC ×3 (08:41→16:48)
[2024-09-15 11:38] LABS: Glucose - Point of Care 215 mg/dl (70-99)
[2024-09-15 13:20] VITALS: BP 119/57; PULSE 84; O2SAT 98
[2024-09-15] MEDS: NOVOLOG FLEXPEN-LOW RESISTANCE 2 UNITS SC (13:25)
--- NOTE | 2024-09-15 14:21 | PN.CDI ---
CDI
- -
CDI:
Physician Documentation Request
Admit Date: 09/12/24 19:10
Dear Doctor Rosendo,
Patient is admitted for management of pneumonia.
Progress notes include a diagnosis of acute hypoxic respiratory failure.
Per documented vital signs patient has remained on 2 L.
Recognized standard criteria for respiratory failure includes:
(Source: [facility] Hospitalist Jul 2013)
ABGs (1 or more)
�PO2 <60 or RA SpO2 <91%
�PcO2 >50 and pH <7.35
�pO2 decrease or pcO2 increase by 10 mmHg from baseline if known Symptoms:
�Tachypnea, SOB, dyspnea
�Pallor or cyanosis
�Anxiety or restlessness
�Use of accessory muscles
�Retractions (grunting in newborns)
�Unable to speak in complete sentences
Supplemental O2 requirement of 40% (5LPM) or more Intubation is not required
Based on the above information and the recognized standard for respiratory failure could you please verify this diagnoses is still accurate and reflective of the patient�s condition to ensure quality of the medical record.
Please clarify in the Progress Notes:
�Respiratory failure is/was present and is a clinical diagnosis based on (please include this additional support in the medical record)
�After study respiratory failure has been ruled out
�Other
Use of terms such as suspected, likely, concern for, or probable (associated with a specific diagnosis that is being evaluated, monitored, or treated as if it exists) are acceptable and can be coded in the inpatient setting, when documented at the
time of discharge.
Thank you,
Grecia Bassett RN, BSN
CDI Specialist
tiger text
Please use your independent medical judgment in providing your response.
--- NOTE | 2024-09-15 14:27 | PN.CDI ---
CDI
- -
CDI:
Physician Documentation Request
Admit Date: 09/12/24 19:10
Dear Doctor Robbins
The diagnosis of bifascicular block was included in the signed EKG 09/12
Please indicate in your progress notes if you are in agreement that the above diagnosis is valid for this patient:
____ - bifascicular block is a valid diagnosis (Please include it in your progress notes)
____ - bifascicular block is not a valid diagnosis for this patient
____ - Other
Use of terms such as suspected, likely, concern for, or probable are acceptable for a diagnosis that is being evaluated, monitored or treated as if it exists and can be coded in the inpatient setting, when documented at the time of discharge.
Thank you,
Grecia Bassett RN, BSN
CDI Specialist
tiger text
Please use your independent medical judgment in providing your response.
--- NOTE | 2024-09-15 14:43 | CM ---
Addendum entered by Molly Collado 09/16/24 15:18:
D/c today.
Plan: Home; no needs
Original Note:
Chart reviewed for d/c planning. Pt currently on abx, cont to be on 2L O2 at this time
Per PT/OT, no skilled needs identified at this time
Speech following
Plan: Home; no needs
[2024-09-15 15:06] VITALS: BP 120/74
[2024-09-15 16:38] LABS: Glucose - Point of Care 181 mg/dl (70-99)
[2024-09-15] MEDS: NSS IV (16:48)
[2024-09-15] MEDS: LOVENOX 40 MG SC (16:49)
[2024-09-15] MEDS: LIPITOR 10 MG PO (16:49)
[2024-09-15] MEDS: LEVAQUIN 150 IV (20:09)
[2024-09-15 21:07] LABS: Glucose - Point of Care 211 mg/dl (70-99)
[2024-09-15] MEDS: SINGULAIR 10 MG PO (21:57)
[2024-09-15] MEDS: ROBITUSSIN DM 10 ML PO (21:57)
[2024-09-15 23:25] VITALS: BP 136/61
[2024-09-16] MEDS: ROBITUSSIN DM 5 ML PO (02:46)
[2024-09-16] MEDS: DUONEB 3 ML INH (03:01)
[2024-09-16 07:34] VITALS: BP 121/60
[2024-09-16 08:03] LABS: Glucose - Point of Care 231 mg/dl (70-99)
[2024-09-16] MEDS: LANTUS 0.15 UNITS SC (09:05)
[2024-09-16] MEDS: ZESTRIL 2.5 MG PO (09:05)
[2024-09-16] MEDS: MUCINEX 600 MG PO (09:05)
[2024-09-16] MEDS: NOVOLOG FLEXPEN 5 UNITS SC ×2 (09:07→12:17)
[2024-09-16] MEDS: NOVOLOG FLEXPEN-LOW RESISTANCE 2 UNITS SC (09:08)
[2024-09-16 09:11] VITALS: PULSE 95; O2SAT 95
--- NOTE | 2024-09-16 10:19 | W.PN.HOSP.TC ---
Today's Communication/Plan
-
discharge planning
Assessment / Plan
Assessment / Plan
Physical exam:
General: Well Developed, Well Nourished and No Apparent Distress
HEENT: Normocephalic, Atraumatic and Moist Mucous Membranes
Respiratory: Clear to Auscultation; Negative Wheezes, Rales or Rhonchi
Cardiac: Regular Rhythm and S1/S2
GI: Soft, Nontender and Nondistended
Musculoskeletal: No Clubbing, No Cyanosis and No Edema
Neuro: Awake, Alert and Oriented
Psych: Calm
A/P:
Acute hypoxic respiratory failure due to aspiration pneumonia:
Supplemental oxygen
Wean oxygen
Strep and Legionella negative
Sputum culture usual livia
Influenza/COVID-19 negative (treated with Tamiflu prior to admission but discontinued after confirmed negative test)
PT OT eval
Discussed with today
Aspiration pneumonia:
In the setting of Zenker's diverticulum
On IV Levaquin--> switch to oral azithromycin
Patient does not tolerate any antibiotics orally perhaps only azithromycin (not even oral Levaquin).
Speech therapy eval--> plan for VSE but after discussion with the patient and sister plans for surgery next week no need for VSE. Currently on minced and moist diet so changed to regular diet per speech therapy recommendations as well.
Patient has scheduled surgery next week for Zenker's diverticulum
Metabolic acidosis:
Resolving
Likely combination of infection, dehydration, and euglycemic DKA due to SGLT2 inhibitor
Resolved with fluids, bicarb, and long-acting and short insulin.
Bicarb today 25, up from as low as 15
Continue to monitor
Hyponatremia:
Improving
Sodium 136 today
Hypertension:
Continue lisinopril
Hyperlipidemia:
Continue atorvastatin 10 mg p.o. nightly
Diabetes mellitus type 2:
On insulin regimen now
Probably back to oral hypoglycemics upon discharge
Asthma:
Stable
Bronchodilators as needed
Continue montelukast
DVT prophylaxis:
Lovenox SQ
CODE STATUS:
Full code
Anticipated Discharge: Today
Subjective/Interval History
-
Date of Service: September 16, 2024
no new complaints
Objective Data
-
Vital Signs:
Vital Signs
Temp Pulse Resp BP Pulse Ox
97.9 F 95 18 121/60 93
09/16/24 07:34 09/16/24 07:34 09/16/24 07:34 09/16/24 07:34 09/16/24 07:34
I&O
09/15/24 09/16/24 09/17/24
06:59 06:59 06:59
Intake Total 1869
Balance 1869
[2024-09-16 11:13] LABS: Glucose - Point of Care 250 mg/dl (70-99)
[2024-09-16] MEDS: NOVOLOG FLEXPEN-LOW RESISTANCE 3 UNITS SC (12:19)
[2024-09-16 13:29] VITALS: BP 112/54
== END 2024-09-16 14:13 | disposition home or self-care (01) | DRG 178 ==
LOC: 4 WEST ACU 19:10
PROVIDERS: Registered Nurse; Student in an Organized Health Care Education/Training Program; ADMITTING PHYSICIAN Hospitalist; ATTENDING PHYSICIAN Hospitalist; EMERGENCY PHYSICIAN Emergency Medicine; FAMILY PHYSICIAN Family Medicine
DX: J69.0 Pneumonitis due to inhalation of food and vomit (principal); E87.1 Hypo-osmolality and hyponatremia; E87.20 Acidosis, unspecified; I45.2 Bifascicular block; Z11.52 Encounter for screening for COVID-19; D63.8 Anemia in other chronic diseases classified elsewhere; E11.9 Type 2 diabetes mellitus without complications; E78.5 Hyperlipidemia, unspecified; R09.02 Hypoxemia; R06.89 Other abnormalities of breathing
CPT/HCPCS: 71046; 80048; 80053; 82010; 82962; 83036; 83605; 84484; 85025; 85027; 87070; 87205; 87449; 87502; 87811; 87899; 92610; 93005; 94640; 97116; 97161; 97166; 97530; 99285

== ENCOUNTER → 2025-02-10 12:17 | Outpatient (REF) | payer OTHER, SELFPAY | LOC: HWWDC 12:17 | PROVIDERS: ATTENDING PHYSICIAN Family Medicine | DX: Z12.31 Encounter for screening mammogram for malignant neoplasm of breast (principal) | CPT/HCPCS: 77063; 77067 ==